=== PATIENT | female | born 1955 | race Caucasian/White ===

== ENCOUNTER 2018-05-01 06:33 | Day surgery (SDC) | payer SELFPAY ==
[2018-05-01] VITALS (8 sets, daily range): BP systolic 96–139; BP diastolic 61–97; PULSE 55–64; RESP 16–18; TEMP 36.1–36.5; O2SAT 93–199; BMI 28.3
--- NOTE | 2018-05-01 07:30 | COLBX_PTH ---
PATIENT: ESTELA MATHIS LOC: EN U#:[id number] AGE/SX: 62/F ROOM: RE05/01/[address]: Dr. Jonathan Cho MD : 1955 BED: DIS: 05/01/2018 SPEC #: [id number] RECD: 05/01/18 11:58 STATUS: DIANE WINSOME #: [id number] [place]: 05/01/18 07:[address]: Jonathan Cho DEPT: SURGICAL PATHOLOGY RECD BY: Jose Maria Novoa ENTERED: 05/01/18 13:36 SP TYPE: COLON BX OTHR DR: Out of Town Doctor Tissues: Ascending colon Procedures: Surgery Specimen Level IV HEADER OPERATION: Colonoscopy PRE-OP DIAGNOSIS: Screening TISSUE SUBMITTED: Ascending colon polyp biopsy MICROSCOPIC DIAGNOSIS Ascending colon polyp, biopsy: Fragments of colonic mucosa, no pathologic diagnosis. SJ:maulik 05/02/18 MICROSCOPIC DESCRIPTION Slides are reviewed. GROSS DESCRIPTION Received in fixative is one container labeled with the patient's name and designated ascending colon polyp biopsy. The specimen consists of multiple irregular fragments of light luciano soft tissue that in aggregate measure 1 x 0.3 x 0.1 cm. The specimen is totally submitted in one cassette. / SJ:rg 05/01/18 TC:4 CPT: 08330
--- NOTE | 2018-05-01 07:40 | PCM.HP.STD ---
Problem List (1) Screening for intestinal cancer Status: Acute History of Present Illness Date of Admission: 05/01/18 The patient is a 62 year old F who presents today for screening colonoscopy. She is claims about 6 years ago she had a colonoscopy with a premalignant polyp done by Dr. Conner Vargas. She claims may be 3 years ago she had a follow-up colonoscopy and that was not remarkable. She denies any current abdominal pain. No bright red blood per rectum or melena. No unexpected weight loss. She does not recant any family history of colon cancer. She otherwise has been enjoying good health. Has not had any recent hospitalizations. Past Medical History Allergies No Known Allergies Allergy (Verified 05/01/18 07:04) Home Medications: Ambulatory Orders Medication Instructions Recorded Supplements DAILY 05/01/18 Surgical History: - - Previous history colonoscopy with polypectomy Smoking Status: Never smoker Review of Systems Constitutional: Denies: Anorexia HEENT: Denies: Difficulty Swallowing Cardiovascular: Denies: Chest Pain Respiratory: Denies: Cough Gastrointestinal: Denies: Abdominal Pain, Hematochezia, Melena Genitourinary: Denies: Dysuria Neurological: Denies: Balance problems VTE Information - Inpt Only VTE Present on Admission: No Patient Problems: Active and Suspected Problems Screening for intestinal cancer (Acute) - Physical Exam General: Alert, Oriented x3, Cooperative, No apparent distress HEENT: Atraumatic Oral: Moist Mucosa Neck: Supple, No JVD, Negative Carotid Bruits Lungs: Clear to auscultation Cardiovascular: Regular rate, Regular Rhythm Abdomen: Bowel Sounds Present, Soft, Non Tender, Non-Distended Extremities: No Calf Tenderness Skin: No rashes Musculoskeletal: No Tenderness to Palpation of Joints or Extremities Vital Signs Temp Pulse Resp BP Pulse Ox 97.7 F L 55 L 16 112/73 97 05/01/18 07:14 05/01/18 07:14 05/01/18 07:14 05/01/18 07:14 05/01/18 07:14 Oxygen Delivery Method Room Air Weight: 145 lb Body Mass Index (BMI) 28.3 Assessment/Plan All Active Problems Screening for intestinal cancer (Acute) 62-year-old female with a personal history of colon polyps. By her report it sounds like one was premalignant. I recommend a surveillance colonoscopy. She is aware of the technique, benefits, risks and alternatives. She is aware the potential need for biopsy or polypectomy. She has had an opportunity to ask and have questions answered. She presents via our open access program. She has performed her bowel prep. Jonathan Cho M.D., F.A.C.S.
--- NOTE | 2018-05-01 08:17 | OP.ENDO_ITS ---
Patient Name: Edilia Dias Procedure Date: 05/01/2018 7:40 AM Date of : 1955 Age: 62 Procedure: Colonoscopy Indications: High risk colon cancer surveillance: Personal history of colonic polyps Providers: Jonathan Cho MD Medicines: Midazolam 2.5 mg IV, Meperidine 75 mg IV, Ondansetron 4 mg IV Patient Profile: Last Colonoscopy: 3 years ago. Complications: No immediate complications. Procedure: Pre-Anesthesia Assessment: - Prior to the procedure, a History and Physical was performed, and patient medications and allergies were reviewed. The patient's tolerance of previous anesthesia was also reviewed. The risks and benefits of the procedure and the sedation options and risks were discussed with the patient. All questions were answered, and informed consent was obtained. Prior Anticoagulants: The patient has taken no previous anticoagulant or antiplatelet agents. ASA Grade Assessment: II - A patient with mild systemic disease. After reviewing the risks and benefits, the patient was deemed in satisfactory condition to undergo the procedure. After I obtained informed consent, the scope was passed under direct vision. Throughout the procedure, the patient's blood pressure, pulse, and oxygen saturations were monitored continuously. The pediatric colonoscope was introduced through the anus and advanced to the cecum, identified by appendiceal orifice and ileocecal valve. The colonoscopy was performed without difficulty. The patient tolerated the procedure well. The quality of the bowel preparation was fair. The ileocecal valve was photographed. Moderate Sedation: Moderate (conscious) sedation was personally administered by the endoscopist. The following parameters were monitored: oxygen saturation, heart rate, blood pressure, and response to care. Total physician intraservice time was 20 minutes. Scope In: 7:49:21 AM Scope Withdrawal Time 0 hours 16 minutes 11 seconds Scope Out: 8:08:08 AM Total Procedure Duration Time 0 hours 18 minutes 47 seconds Findings: The digital rectal exam findings include non-thrombosed external hemorrhoids, non-thrombosed internal hemorrhoids and internal hemorrhoids that prolapse with straining, but spontaneously regress to the resting position (Grade II). A 5 mm polyp was found in the proximal ascending colon. The polyp was sessile. The polyp was removed with a cold biopsy forceps. Resection and retrieval were complete. Multiple diverticula were found in the entire colon. Impression: - Preparation of the colon was fair. - Non-thrombosed external hemorrhoids, non-thrombosed internal hemorrhoids and internal hemorrhoids that prolapse with straining, but spontaneously regress to the resting position (Grade II) found on digital rectal exam. - One 5 mm polyp in the proximal ascending colon, removed with a cold biopsy forceps. Resected and retrieved. - Diverticulosis in the entire examined colon. Recommendation: - Discharge patient to home. - Resume previous diet. - Continue present medications. - Repeat colonoscopy in 3 years for surveillance. Sigmoid was difficult to visualize b/o stool balls released from her diverticular dz and liquid stool in the area. Patient re positioned to allow for better view but still challenging to clearly see all of this colon - Telephone my office for pathology results in 1 week. Procedure Code(s): --- Professional --- 67014, Colonoscopy, flexible; with biopsy, single or multiple 57544, 59, Moderate sedation services provided by the same physician or other qualified health day care attendant performing the diagnostic or therapeutic service that the sedation supports, requiring the presence of an independent trained observer to assist in the monitoring of the patient's level of consciousness and physiological status; initial 15 minutes of intraservice time, patient age 5 years or older Diagnosis Code(s): --- Professional --- Z86.010, Personal history of colonic polyps K64.1, Second degree hemorrhoids K64.4, Residual hemorrhoidal skin tags D12.2, Benign neoplasm of ascending colon K57.30, Diverticulosis of large intestine without perforation or abscess without bleeding CPT copyright 2017 [employer]. All rights reserved. The codes documented in this report are preliminary and upon dock grader review may be revised to meet current compliance requirements. Jonathan Cho MD 05/01/2018 8:17:21 AM This report has been signed electronically. Number of Addenda: 0 Note Initiated On: 05/01/2018 7:40 AM
== END 2018-05-01 09:35 | disposition home or self-care (01) ==
LOC: EN 06:40 → AC 06:45
PROVIDERS: Referring Provider Surgery; Visit Provider Surgery
PROC: 0DJD8ZZ Inspection of Lower Intestinal Tract, Via Natural or Artificial Opening Endoscopic (ICD-10-PCS; CPT 45378; principal; 2018-05-01 07:25)
DX: Z12.11 Encounter for screening for malignant neoplasm of colon (principal); D12.2 Benign neoplasm of ascending colon; K57.30 Diverticulosis of large intestine without perforation or abscess without bleeding; K64.1 Second degree hemorrhoids; K64.4 Residual hemorrhoidal skin tags; Z86.010 Personal history of colon polyps
CPT/HCPCS: 45380; 88305; 99152; 99153; J7120; J2405

== ENCOUNTER 2021-05-04 05:20 | Day surgery (SDC) | payer MEDICARE, OTHER, SELFPAY ==
[2021-05-04] VITALS (8 sets, daily range): BP systolic 94–142; BP diastolic 56–81; PULSE 57–70; RESP 16–18; TEMP 36–36.5; O2SAT 95–100; BMI 28.3
--- NOTE | 2021-05-04 06:18 | HP.PCM_ITS ---
HPI - General HPI Narrative ESTELA MATHIS, is a 65 F who presents who presents via open access for colonoscopy. In 2018 I did a colonoscopy for her. I resected tubular adenoma. The bowel prep at that time was only fair. Based upon that I asked her return sooner for surveillance. She did have Covid-11 June 2020. She did not re quire hospitalization. She has been vaccinated since. She has no current complaints regarding respiratory or abdominal issues. [facility] Medical History (Updated 05/04/21 @ 06:[address] Jonathan Cho MD) Arthritis Non-smoker Wears glasses Home Medications [id number] 1 cap PO DAILY 04/30/21 [History Last Taken Unknown] adrenal cortex (porcine) [Adrenal] 80 mg PO DAILY 04/30/21 [History Last Taken Unknown] ascorbic acid (vitamin C) [Vitamin C] 1 g PO DAILY 04/30/21 [History Last Taken Unknown] cholecalciferol (vitamin D3) [Vitamin D3] 250 mcg PO DAILY 04/30/21 [History Last Taken Unknown] multivitamin 1 tab PO DAILY 04/30/21 [History Last Taken Unknown] thyroid (pork) [[place] Thyroid] 15 mg PO DAILY 04/30/21 [History Last Taken Unknown] turmeric 400 mg PO DAILY 04/30/21 [History Last Taken Unknown] vitamin B complex 1 tab PO DAILY 04/30/21 [History Last Taken Unknown] zinc 100 mg PO DAILY 04/30/21 [History Last Taken Unknown] Allergy/AdvReac Type Severity Reaction Status Date / Time No Known Allergies Allergy Verified 04/30/21 12:09 Surgical History (Updated 04/30/21 @ 12:19 by Annabelle Trammell) Hx of section Hx of foot surgery Social History Smoking Status: Never smoker ROS Constitutional Constitutional: Reports systems reviewed and no addt'l complaints, except as documented Cardiovascular Cardiovascular: Denies chest pain Respiratory/Chest Respiratory/Chest: Denies shortness of breath at rest Gastrointestinal Gastrointestinal: Denies abdominal pain, change in bowel habits, hematochezia or melena Vital Signs Vital Signs Vital Signs: 05/04/21 05:44 Temperature 97.7 F L Temperature Source Temporal Pulse Rate 70 Respiratory Rate 16 Respiratory Pattern Normal Blood Pressure 118/65 Blood Pressure Mean 82 Blood Pressure Source Monitor Blood Pressure Position Semi-Fowlers Blood Pressure Location Right Arm Pulse Ox 98 Oxygen Delivery Method Room Air Weight Weight: 145 lb Body Mass Index (BMI) 28.3 Physical Exam Const alert, oriented x3 and no apparent distress General Appearance: cooperative and comfortable Eyes General Eye: normal appearance of both eyes Neck General: normal visual inspection Chest inspection of chest normal Resp Effort and Inspection: able to speak in complete sentences and symmetric chest movement Auscultation: clear to auscultation bilaterally Cardio regular rate and regular rhythm GI soft to palpation, non-tender and non-distended Extremity no calf tenderness Neuro oriented x3 Psych thought process normal Assessment & Plan Assessment/Plan (1) Personal history of colonic polyps: PLAN: 65-year-old female with a personal history of colon polyps and only a previous fair bowel prep. She presents via open access for a colonoscopy with possible biopsy or polypectomy as indicated. She is aware of the technique, benefit, risk, alternatives. We will proceed as noted. Jonathan Cho M.D., F.A.C.S.
--- NOTE | 2021-05-04 06:30 | COLBX_PTH ---
PATIENT: ESTELA AMTHIS LOC: EN U#:[id number] AGE/SX: 65/F ROOM: RE05/04/[address]: Dr. Jonathan Cho MD : 1955 BED: DIS: 05/04/2021 SPEC #: [id number] RECD: 05/04/21 15:49 STATUS: DIANE SCHUMACHER #: [id number] [place]: 05/04/21 06:[address]: Jonathan Cho DEPT: SURGICAL PATHOLOGY RECD BY: Akil Michelle Tissues: Ascending colon Procedures: Surgery Specimen Level IV HEADER OPERATION: Colonoscopy ? open access (MOD) PRE-OP DIAGNOSIS: Screening TISSUE SUBMITTED: Proximal ascending colon polyp biopsy MICROSCOPIC DIAGNOSIS Proximal ascending colon polyp, biopsy: Fragments of colonic mucosa, no pathologic diagnosis. JORGE:maulik 05/06/2021 MICROSCOPIC DESCRIPTION Slides are reviewed. GROSS DESCRIPTION Received in fixative is one container labeled with the patient's name and designated proximal ascending colon polyp biopsy. The specimen consists of multiple irregular fragments of light luciano soft tissue that in aggregate measure 1 x 1 x 0.1 cm. The specimen is totally submitted in one cassette. / SJ:maulik 05/05/21 TC:4 CPT: 80993
--- NOTE | 2021-05-04 06:48 | OP.COLON_ITS ---
Patient Name: Edilia Dias Procedure Date: 05/04/2021 6:09 AM Date of : 1955 Age: 65 Procedure: Colonoscopy Indications: High risk colon cancer surveillance: Personal history of colonic polyps Providers: Jonathan Cho MD Medicines: Midazolam 3 mg IV, Meperidine 75 mg IV Patient Profile: Last Colonoscopy: 2017. Complications: No immediate complications. Procedure: Pre-Anesthesia Assessment: - Prior to the procedure, a History and Physical was performed, and patient medications and allergies were reviewed. The patient's tolerance of previous anesthesia was also reviewed. The risks and benefits of the procedure and the sedation options and risks were discussed with the patient. All questions were answered, and informed consent was obtained. Prior Anticoagulants: The patient has taken no previous anticoagulant or antiplatelet agents. ASA Grade Assessment: II - A patient with mild systemic disease. After reviewing the risks and benefits, the patient was deemed in satisfactory condition to undergo the procedure. After I obtained informed consent, the scope was passed under direct vision. Throughout the procedure, the patient's blood pressure, pulse, and oxygen saturations were monitored continuously. The colonoscope was introduced through the anus and advanced to the cecum, identified by appendiceal orifice and ileocecal valve. The colonoscopy was somewhat difficult due to poor bowel prep. The patient tolerated the procedure well. The quality of the bowel preparation was fair. The ileocecal valve and the appendiceal orifice were photographed. Moderate Sedation: Moderate (conscious) sedation was personally administered by the endoscopist. The following parameters were monitored: oxygen saturation, heart rate, blood pressure, and response to care. Total physician intraservice time was 15 minutes. Scope In: 6:28:14 AM Scope Withdrawal Time 0 hours 9 minutes 23 seconds Scope Out: 6:42:43 AM Total Procedure Duration Time 0 hours 14 minutes 29 seconds Findings: The digital rectal exam findings include non-thrombosed external hemorrhoids, non-thrombosed internal hemorrhoids and internal hemorrhoids that prolapse with straining, but spontaneously regress to the resting position (Grade II). A 6 mm polyp was found in the proximal ascending colon. The polyp was sessile. The polyp was removed with a cold biopsy forceps. Resection and retrieval were complete. Multiple diverticula were found in the entire colon. The ileocecal valve was mildly lipomatous. Impression: - Preparation of the colon was fair. - Non-thrombosed external hemorrhoids, non-thrombosed internal hemorrhoids and internal hemorrhoids that prolapse with straining, but spontaneously regress to the resting position (Grade II) found on digital rectal exam. - One 6 mm polyp in the proximal ascending colon, removed with a cold biopsy forceps. Resected and retrieved. - Diverticulosis in the entire examined colon. Recommendation: - Discharge patient to home. - Resume previous diet. - Continue present medications. - Repeat colonoscopy in 5 years for surveillance based on pathology results. - Telephone my office for pathology results in 1 week. Procedure Code(s): --- Professional --- 98072, Colonoscopy, flexible; with biopsy, single or multiple 08686, 59, Moderate sedation services provided by the same physician or other qualified health healthcare sales representative performing the diagnostic or therapeutic service that the sedation supports, requiring the presence of an independent trained observer to assist in the monitoring of the patient's level of consciousness and physiological status; initial 15 minutes of intraservice time, patient age 5 years or older Diagnosis Code(s): --- Professional --- Z86.010, Personal history of colonic polyps K64.1, Second degree hemorrhoids K64.4, Residual hemorrhoidal skin tags D12.2, Benign neoplasm of ascending colon K57.30, Diverticulosis of large intestine without perforation or abscess without bleeding CPT copyright 2017 [employer]. All rights reserved. The codes documented in this report are preliminary and upon hydraulic plumber helper review may be revised to meet current compliance requirements. Jonathan Cho MD 05/04/2021 6:47:48 AM This report has been signed electronically. Number of Addenda: 0 Note Initiated On: 05/04/2021 6:09 AM
--- NOTE | 2021-05-04 06:48 | OP.CCLET_ITS ---
05/04/2021 Out Of [facility] Doctor Re : Colonoscopy procedure for Edilia Dias Dear [facility] Doctor This procedure was performed on Tuesday, May 04, 2021. My impressions and recommendations are as follows: Impressions : - Preparation of the colon was fair. - Non-thrombosed external hemorrhoids, non-thrombosed internal hemorrhoids and internal hemorrhoids that prolapse with straining, but spontaneously regress to the resting position (Grade II) found on digital rectal exam. - One 6 mm polyp in the proximal ascending colon, removed with a cold biopsy forceps. Resected and retrieved. - Diverticulosis in the entire examined colon. Recommendations : - Discharge patient to home. - Resume previous diet. - Continue present medications. - Repeat colonoscopy in 5 years for surveillance based on pathology results. - Telephone my office for pathology results in 1 week. My findings are described in the full procedure note, which is enclosed. If I can be of further assistance, please feel free to contact me at Doctor phone number(s): Work: . Sincerely, Jonathan Cho MD 05/04/2021 6:47:48 AM This report has been signed electronically.
== END 2021-05-04 07:25 | disposition home or self-care (01) ==
LOC: EN 05:25 → AC 05:26
PROVIDERS: Visit Provider Surgery
PROC: 0DJD8ZZ Inspection of Lower Intestinal Tract, Via Natural or Artificial Opening Endoscopic (ICD-10-PCS; CPT 45378; principal; 2021-05-04 06:25)
DX: Z12.11 Encounter for screening for malignant neoplasm of colon (principal); D12.2 Benign neoplasm of ascending colon; K64.4 Residual hemorrhoidal skin tags; K64.1 Second degree hemorrhoids; K57.30 Diverticulosis of large intestine without perforation or abscess without bleeding; M19.90 Unspecified osteoarthritis, unspecified site; Z86.010 Personal history of colon polyps; Z86.16 Personal history of COVID-19
CPT/HCPCS: 45380; 88305; 99152; 99153; J7120